=== PATIENT | female | born 1950 | race Caucasian/White ===

== ENCOUNTER 2018-01-12 12:41 | Emergency (ER) | payer MEDICARE ==
[~2018-01-12] VITALS: Ht 172.7 cm; Wt 95.3 kg
--- NOTE | 2018-01-12 13:36 | PHYS DOC ---
Past History Past Medical History: Other Additional Past Medical Histor: chronic lower extremity edema Past Surgical History: Hysterectomy Alcohol Use: Rarely Drug Use: Marijuana Adult General Chief Complaint Chief Complaint: LOWER EXTREMITY SWELLING [facility] 67-year-old female patient with history of chronic lower extremity edema and states she had bilateral lower extremity edema and pain for the last 4 days that is more than her usual and seen by her primary care physician yesterday and instructed to continue to take Lasix 40 mg daily and made some appointment for bilateral lower extremity ultrasound in 2 days from now. She states she is worried about having blood clots and decided to come to ER for evaluation. Patient states she doesn't want to have any blood test because her primary care physician did all of the blood test yesterday. Patient denies fever and chills, shortness of breath, chest pain, focal neuro deficit. Patient states she takes 4 mg of Lasix every morning and PRN at night as needed for edema. Review of Systems Review of Systems Constitutional: Denies fever or chills [] Eyes: Denies change in visual acuity, redness, or eye pain [] HENT: Denies nasal congestion or sore throat [] Respiratory: Denies cough or shortness of breath [] Cardiovascular: No additional information not addressed in HPI [] GI: Denies abdominal pain, nausea, vomiting, bloody stools or diarrhea [] : Denies dysuria or hematuria [] Musculoskeletal: Denies back pain or joint pain [] Integument: Denies rash or skin lesions [] Neurologic: Denies headache, focal weakness or sensory changes [] Endocrine: Denies polyuria or polydipsia [] All other systems were reviewed and found to be within normal limits, except as documented in this note. Allergies Allergies Allergies Uncoded Allergies Type Severity Reaction Last Updated Verified PCN Allergy Intermediate 01/12/18 Physical Exam Physical Exam Constitutional: Anxious,mild distress, non-toxic appearance. [] HENT: Normocephalic, atraumatic, bilateral external ears normal, oropharynx moist, no oral exudates, nose normal. [] Eyes: PERRLA, EOMI, conjunctiva normal, no discharge. [] Neck: Normal range of motion, no tenderness, supple, no stridor. [] Cardiovascular:Heart rate regular rhythm, no murmur [] Lungs & Thorax: Bilateral breath sounds clear to auscultation [] Skin: Warm, dry, no erythema, no rash. [] Back: No tenderness, no CVA tenderness. [] Extremities: Bilateral lower extremity 3+ edema with mild erythema and tenderness in posterior of both legs without sign of infection or neurovascular deficit Neurologic: Alert and oriented X 3, normal motor function, normal sensory function, no focal deficits noted. [] Psychologic: Anxious, mood normal. [] Current Patient Data Vital Signs Vital Signs Date Time Temp Pulse Resp B/P (MAP) Pulse Ox O2 Delivery O2 Flow Rate FiO2 01/12/18 13:12 101 24 97 Room Air EKG EKG [] Radiology/Procedures Radiology/Procedures [] Course & Med Decision Making Course & Med Decision Making Evaluation of patient in ER showed 67-year-old female patient with history of chronic lower extremity edema and increasing edema for the last few days. Patient did not want to have blood tests in ER and then decided to wait to have her outpatient ultrasound of both leg in 2 days. Patient asked for pain medication and instructed to follow up with her primary care physician. I've spoken with the patient and/or caregivers. I've explained the patient's condition, diagnosis and treatment plan based on information available to me at this time. I've answered the patient's and/or caregivers questions and addressed any concerns. The patient and/or caregivers have a good understanding the patient's diagnosis, condition and treatment plan as can be expected at this point. Vital signs have been stabilized. The patient's condition is stable for discharge from the emergency department. The patient will pursue further outpatient evaluation with her primary care provider or other designated consulting physician as outlined in the discharge instructions. Patient and/or caregivers are agreeable to this plan of care and follow-up instructions have been explained in detail. The patient and/or caregivers have received these instructions in written format and expressed understanding of these discharge instructions. The patient and her caregivers are aware that if any significant change in condition or worsening of symptoms should prompt him to immediately return to this of the closest emergency department. If an emergent department is not readily available I would encourage him to call 911. Mendoza Disclaimer Mendoza Disclaimer This electronic medical record was generated, in whole or in part, using a voice recognition dictation system. Departure Departure: Impression: Primary Impression: Bilateral lower extremity edema Additional Impressions: Marijuana abuse Anxiety Disposition: HOME, SELF-CARE (At 1335) Condition: STABLE Referrals: JOSE LUIS NELSON MD (PCP) Patient Instructions: Edema, [id number] Additional Instructions: Take Lasix 80 mg in the morning with potassium Follow-up with your primary care physician in 2 days as scheduled Return to ER if not getting better Problem Qualifiers FRANC SO MD Jan 12, 2018 13:36
[2018-01-12 13:56] VITALS: BP 139/95
== END 2018-01-12 14:10 | disposition home or self-care (01) ==
LOC: ER 12:41
DX: R60.0 Localized edema (principal); F41.9 Anxiety disorder, unspecified; F12.10 Cannabis abuse, uncomplicated; Z88.0 Allergy status to penicillin
CPT/HCPCS: 99281

== ENCOUNTER → 2018-01-14 | Outpatient (CLI) | payer MEDICARE ==
[2018-01-12 13:56] VITALS: BP 139/95
--- NOTE | 2018-01-14 17:15 | RAD ---
Right leg venous Doppler study: Clinical indications: Right leg swelling and pain. Findings: Duplex sonography (including mello scale evaluation and color flow and waveform spectral analysis) of the proximal aspect of the greater saphenous vein and proximal aspect of the profunda femoral vein and the entire length of the common femoral and superficial femoral and popliteal veins and the tibioperoneal trunk of the right leg was performed. Normal compressibility, augmentation of color Doppler flow after calf compression, and respiratory variation of Doppler flow is seen. Thus, there are no sonographic findings of deep venous thrombosis within these veins. The calf veins are not dilated. The patient cannot tolerate compression due to pain. Impression: There are no sonographic findings of deep venous thrombosis within the veins discussed above of the right lower extremity. Left leg venous Doppler study: Clinical indications: Left leg swelling and pain. Findings: Duplex sonography (including mello scale evaluation and color flow and waveform spectral analysis) of the proximal aspect of the greater saphenous vein and the proximal aspect of the profunda femoral vein and the entire length of the common femoral and superficial femoral and popliteal veins and the tibioperoneal trunk and the proximal aspect of the left leg was performed. Normal compressibility, augmentation of color Doppler flow after calf compression, and respiratory variation of Doppler flow is seen. Thus, there are no sonographic findings of deep venous thrombosis within these veins. The calf veins are not dilated. The patient cannot tolerate compression due to pain. Impression: There are no sonographic findings of deep venous thrombosis within the veins discussed above of the left lower extremity.
== END | disposition home or self-care (01) ==
LOC: US 14:46
PROVIDERS: ATTEND Family Medicine
DX: I87.2 Venous insufficiency (chronic) (peripheral) (principal); I82.413 Acute embolism and thrombosis of femoral vein, bilateral; F12.10 Cannabis abuse, uncomplicated
CPT/HCPCS: 93970

== ENCOUNTER → 2019-12-07 | Outpatient (CLI) | payer MEDICARE ==
--- NOTE | 2019-12-07 14:39 | RAD ---
Right lower extremity venous real time grayscale, color and spectral duplex ultrasound was performed. History: Right lower extremity edema Comparison: None The right common femoral, femoral, and popliteal veins demonstrate anechoic lumina, full compressibility, augmentable waveforms, and cephalad color Doppler flow. The posterior tibial are also patent. Normal flow is also seen in the cephalad portion of the saphenous vein. There is a 5.9 x 1.3 x 1.8 cm Sommer's cyst in the right popliteal fossa. There is also subcutaneous edema below the knee in the calf. Impression: No evidence of DVT in the right lower extremity. Electronically signed by: Liu Kumar MD (12/07/2019 2:36 PM) [id number]
== END | disposition home or self-care (01) ==
LOC: US 13:46
PROVIDERS: ATTEND Nurse Practitioner Adult Health
DX: M79.89 Other specified soft tissue disorders (principal); M71.21 Synovial cyst of popliteal space [Baker], right knee
CPT/HCPCS: 93971

== ENCOUNTER → 2020-01-06 | Outpatient (CLI) | payer MEDICARE ==
--- NOTE | 2020-01-06 16:08 | RAD ---
MR#: [id number] Date of Study: 01/06/2020 Ordering Physician: CLAIR JONES, Referring Physician: CLAIR JONES, Tech: Georgina Page RDMS, RVT APPROVED REPORT Patient Location : OUT-PATIENT Indications Lower Extremity Pain : Right Lower Extremity Edema : Bilateral Grayscale images of the bilateral greater and lesser saphenous veins are grossly unremarkable. Color Doppler and spectral evaluation bilaterally reveals no significant evidence of reflux. Risk Factors Obesity Medications PATIENT IS NOT ON ANY MEDICINE Deep System Deep Venous Thrombosis present : No Deep Venous Reflux present : No Critical Notification Critical Value: No <Conclusion> 1. Negative for reflux in the bilateral greater and lesser saphenous veins. Signed by : Evgeny Woodard, Electronically Approved : 01/06/2020 16:08:08
== END | disposition home or self-care (01) ==
LOC: US 12:30
PROVIDERS: ATTEND Internal Medicine Cardiovascular Disease
DX: R60.0 Localized edema (principal)
CPT/HCPCS: 93970